=== PATIENT | male | born 1985 | race Caucasian/White ===

== ENCOUNTER 2018-01-02 13:57 | Outpatient (CLI) | END 2018-01-02 13:58 | disposition home or self-care (01) | LOC: AMBL 13:57 | PROVIDERS: ATTEND Internal Medicine Geriatric Medicine | DX: S01.111A Laceration without foreign body of right eyelid and periocular area, initial encounter (principal); S01.81XA Laceration without foreign body of other part of head, initial encounter; W20.8XXA Other cause of strike by thrown, projected or falling object, initial encounter ==